=== PATIENT | male | born 1975 | race Caucasian/White ===

== ENCOUNTER 2023-04-20 21:03 | Emergency (ER) | payer OTHER, SELFPAY ==
[2023-04-20 21:17] VITALS: BP 172/97; PULSE 45; RESP 16; TEMP 36.5; O2SAT 97; BMI 31.5
--- NOTE | 2023-04-20 21:38 | DI.US.S_ITS ---
PROCEDURE: US ABDOMEN LIMITED INDICATIONS: RUQ PAIN TECHNIQUE: Real-time focused scanning was performed of the abdomen, with image documentation. COMPARISON: None. FINDINGS: The liver is mildly enlarged. There is increased parenchymal echogenicity compatible with fatty infiltration. The gallbladder is distended and demonstrates multiple gallstones including an impacted stone in the gallbladder neck measuring up to 1.2 cm. No gallbladder wall thickening or pericholecystic fluid. Patient was reportedly tender on examination. No intra or extrahepatic biliary ductal dilatation, with the distal common bile duct not well seen. Pancreas was not well seen. IMPRESSION: 1. Cholelithiasis with distention of the gallbladder and an impacted stone in the gallbladder neck. Although there is no gallbladder wall thickening or pericholecystic fluid, developing cholecystitis cannot be excluded. Dictated by: Rony Caldera M.D. on 04/20/2023 at 23:20 Approved by: Rony Caldera M.D. on 04/20/2023 at 23:22
[2023-04-20] MEDS: ONDANSETRON 4 MG/2 ML INJ IV (21:43)
[2023-04-20] MEDS: KETOROLAC 30 MG/ML VIAL 15 MG IV (21:52)
[2023-04-20 21:55] LABS: Add Manual Diff / Slide Review NO; Basophils Absolute Auto 200 /uL (0-100); Basophils Percent Auto 1.9 % (0-2); Eosinophils Absolute Auto 100 /uL (0-450); Eosinophils Percent Auto 0.7 % (2-4); Hematocrit 40.9 % (41-53); Hemoglobin 14.1 g/dL (13.5-17.5); Lymphocytes Absolute Auto 1400 /uL (1100-4500); Mean Corpuscular HGB Conc 34.5 % (30-36); Mean Corpuscular Hemoglobin 31.5 PG (26-34); Mean Corpuscular Volume 91.3 fL (80-100); Monocytes Absolute Auto 500 /uL (0-900); Monocytes Percent Auto 4.7 % (3-14); Neutrophils Absolute Auto 7500 /uL (1500-7000); Neutrophils Percent Auto 77.7 % (50-75); Platelet Count 247 X10^3/uL (150-400); Red Blood Cell Count 4.48 X10^6/uL (4.5-5.9); Red Cell Distribution Width 12.8 % (11.6-14.8); White Blood Cell Count 9.6 X10^3/uL (4.5-11.0)
[2023-04-20 21:59] LABS: Alanine Aminotransferase 165 IU/L (<50); Albumin 4.6 g/dL (3.5-5.0); Albumin Globulin Ratio 1.2 (1.0-2.8); Alkaline Phosphatase 55 U/L (38-126); Aspartate Aminotransferase 77 IU/L (17-59); BUN Creatinine Ratio 11.6 (6-22); Bilirubin Total 0.5 mg/dL (0.2-1.3); Blood Urea Nitrogen 14 mg/dL (9-20); Calcium 10.2 mg/dL (8.4-10.2); Carbon Dioxide 28 mmol/L (22-32); Chloride 99 mmol/L (98-107); Creatine Kinase 244 U/L (55-170); Estimated Glomerular Filt Rate > 60 mL/min (>60); Globulin 3.9 g/dL (1.7-4.1); Glucose 139 mg/dL (70-100); HEMOLYSIS 16 (0-50); Lipase 62 U/L (23-300); Potassium 3.9 mmol/L (3.4-5.1); Sodium 135 mmol/L (137-145); Total Protein 8.5 g/dL (6.3-8.2)
[2023-04-20 22:11] LABS: Troponin I 0.013 ng/mL (0.01-0.034)
[2023-04-20 22:55] VITALS: BP 143/76
[2023-04-20 22:56] VITALS: PULSE 80; O2SAT 97
--- NOTE | 2023-04-20 23:03 | ED_ITS ---
HPI - Abdominal Pain General Chief Complaint: Abdominal Pain Stated Complaint: upper abd pain Time Seen by Provider: 04/20/23 22:27 Source: patient and family Mode of arrival: Ambulatory History of Present Illness HPI narrative: Patient is a healthy 47-year-old male presents today with epigastric pain. Reports he was doing well earlier in the day had pulled pork, corn, and a beer for dinner started having burning sensation his epigastric region severe pain. Took [id number] [place] no relief. Mild nausea no vomiting. They are currently visiting from [facility]. He denies any chest pain shortness of breath or prior episodes. He is not had fever or chills. Related Data Previous Rx's Medication Instructions Recorded hydrocodone 5 mg-acetaminophen 325 1 tab PO Q6H PRN pain #10 tabs 04/20/23 mg tablet ondansetron 4 mg disintegrating 4 mg PO Q8H PRN nausea and 04/20/23 tablet vomiting #10 tabs Allergies Allergy/AdvReac Type Severity Reaction Status Date / Time No Known Drug Allergies Allergy Verified 04/20/23 21:17 Review of Systems Review of Systems ROS Unobtainable: All systems reviewed & are unremarkable except as noted in HPI and below Patient History Social History Smoking Status: Never smoker Smoking Status: Never smoker alcohol intake frequency: 0-2 drinks per day Substance Use Type: does not use Exam Initial Vital Signs Initial Vital Signs: Vital Signs Temperature 97.7 F 04/20/23 21:17 Pulse Rate 45 L 04/20/23 21:17 Respiratory Rate 16 04/20/23 21:17 Blood Pressure 172/97 H 04/20/23 21:17 Pulse Oximetry 97 04/20/23 21:17 Oxygen Delivery Method Room Air 04/20/23 21:17 GENERAL: Alert well-appearing 47-year-old male and in no acute distress. (seen after Toradol and Zofran) HEENT: Head atraumatic,EOMI, pupils reactive, face symmetric, moist mucous membranes CARDIOVASCULAR: Regular rate and rhythm without murmurs, rubs or gallops. RESPIRATORY: Breath sounds equal bilaterally, no wheezes rales or rhonchi. ABDOMEN: Soft, right upper quadrant pain positive Reddy sign no guarding no rebound mild epigastric pain EXTREMITIES: Normal range of motion, no clubbing or edema. Neurovascularly intact NEUROLOGICAL: Alert and oriented x4.Normal gait and speech. SKIN: Warm, dry, no laceration, no petechiae, no rashes or lesions. Course Orders Ordered: ED Orders 04/20/23 21:22 EKG-12 Lead Stat 04/20/23 21:35 Complete Blood Count AUTO DIFF Stat Comprehensive Metabolic Panel Stat Lipase Stat Troponin & CK Cardiac Panel Stat 04/20/23 21:38 US abdomen limited Stat Discontinued Medications Hydrocodone Bitart/Acetaminophen (Hydrocodone/Acet 5/325 Prepack) 1 bottle MISC SEEINSTR ONE Stop: 04/20/23 23:59 Last Admin: 04/21/23 00:29 Dose: 1 bottle Documented By: SKYLAR Al Hydrox/Mg Hydrox/Simethicone 20 ml/ Lidocaine HCl 15 ml 0 ml PO NOW ONE Stop: 04/20/23 21:26 Last Admin: 04/20/23 22:04 Dose: Not Given Documented By: MARKY Ketorolac Tromethamine (Ketorolac 30 Mg/Ml Vial) 15 mg IV NOW ONE Stop: 04/20/23 21:48 Last Admin: 04/20/23 21:52 Dose: 15 mg Documented By: KIMBER Ondansetron HCl (Ondansetron 4 Mg Odt) 4 mg PO NOW PRN PRN Reason: Nausea And Vomiting Ondansetron HCl (Ondansetron 4 Mg/2 Ml Inj) 4 mg IV NOW PRN PRN Reason: Nausea And Vomiting Last Admin: 04/20/23 21:43 Dose: 4 mg Documented By: ANDRY Ondansetron HCl (Ondansetron 4 Mg Odt Prepack) 1 bottle [facility] Stop: 04/20/23 23:59 Last Admin: 04/21/23 00:29 Dose: 1 bottle Documented By: SKYLAR Pantoprazole Sodium (Pantoprazole 40 Mg Vial) 40 mg IV NOW ONE Stop: 04/20/23 23:11 Last Admin: 04/20/23 23:20 Dose: 40 mg Documented By: KEE Vital Signs Vital signs: Vital Signs - 8 hr 04/20/23 21:17 04/20/23 22:55 04/20/23 22:56 Temperature 97.7 F Pulse Rate 45 L 80 Respiratory Rate 16 Blood Pressure 172/97 H 143/76 H Pulse Oximetry 97 97 Oxygen Delivery Method Room Air Room Air 04/20/23 23:20 04/20/23 23:20 04/21/23 00:30 Temperature 97.9 F Pulse Rate 77 70 Respiratory Rate 16 Blood Pressure 141/74 H 135/76 Pulse Oximetry 96 96 Oxygen Delivery Method Room Air Room Air MDM - Abdominal Pain Lab Data 04/20/23 21:35 04/20/23 21:35 Labs: Lab Results 04/20/23 04/20/23 04/20/23 Range/Units 21:35 21:35 21:35 WBC 9.6 (4.5-11.0) X10^3/uL RBC 4.48 L (4.5-5.9) X10^6/uL Hgb 14.1 (13.5-17.5) g/dL Hct 40.9 L (41-53) % MCV 91.3 (80-100) fL MCH 31.5 (26-34) PG MCHC 34.5 (30-36) % RDW 12.8 (11.6-14.8) % Plt Count 247 (150-400) X10^3/uL Neut % (Auto) 77.7 H (50-75) % Lymph % (Auto) 15.0 L (25-40) % [place] % (Auto) 4.7 (3-14) % Eos % (Auto) 0.7 L (2-4) % Baso % (Auto) 1.9 (0-2) % Neut # (Auto) 7500 H (6461-7212) /uL Lymph # (Auto) 1400 (7959-2305) /uL [place] # (Auto) 500 (0-900) /uL Eos # (Auto) 100 (0-450) /uL Baso # (Auto) 200 H (0-100) /uL Sodium 135 L (137-145) mmol/L Potassium 3.9 (3.4-5.1) mmol/L Chloride 99 (98-107) mmol/L Carbon Dioxide 28 (22-32) mmol/L BUN 14 (9-20) mg/dL Creatinine 1.21 (0.66-1.25) mg/dL Estimated GFR > 60 (>60) mL/min BUN/Creatinine Ratio 11.6 (6-22) Glucose 139 H (70-100) mg/dL Calcium 10.2 (8.4-10.2) mg/dL Total Bilirubin 0.5 (0.2-1.3) mg/dL AST 77 H (17-59) IU/L ALT 165 H (<50) IU/L Alkaline Phosphatase 55 (38-126) U/L Total Creatine Kinase 244 H (55-170) U/L Troponin I 0.013 (0.01-0.034) ng/mL Total Protein 8.5 H (6.3-8.2) g/dL Albumin 4.6 (3.5-5.0) g/dL Globulin 3.9 (1.7-4.1) g/dL Albumin/Globulin Ratio 1.2 (1.0-2.8) Lipase 62 (23-300) U/L Point of care testing: Urine Dip Bedside Urine Glucose Negative Bedside Urine Bilirubin - Negative Bedside Urine Ketone - Negative Urine Specific [place] 1.025 Bedside Urine Occult Blood - Negative Bedside Urine pH 6.0 Bedside Urine Protein - Negative Bedside Urine Urobilinogen - Negative Bedside Urine Nitrite - Negative Bedside Urine Leukocytes - Negative Esterase Imaging Data US - abdomen: Radiologist's Impression: PROCEDURE: US ABDOMEN LIMITED ? INDICATIONS:? RUQ PAIN ? TECHNIQUE:? Real-time focused scanning was performed of the abdomen, with image documentation.? ? COMPARISON:? None. ? FINDINGS:? ? The liver is mildly enlarged.? There is increased parenchymal echogenicity compatible with fatty infiltration. ? The gallbladder is distended and demonstrates multiple gallstones including an impacted stone in the gallbladder neck measuring up to 1.2 cm.? No gallbladder wall thickening or pericholecystic fluid.? Patient was reportedly tender on examination. ? No intra or extrahepatic biliary ductal dilatation, with the distal common bile duct not well seen. ? Pancreas was not well seen. ? ? IMPRESSION:? ? 1. Cholelithiasis with distention of the gallbladder and an impacted stone in the gallbladder neck.? Although there is no gallbladder wall thickening or pericholecystic fluid, developing cholecystitis cannot be excluded. ? ? Dictated by: Rony Caldera M.D. on 04/20/2023 at 23:20 ? ECG Data Interpretation: Normal sinus rhythm rate 47 VA interval 170 QRS [address] changes normal intervals no priors to compare. [facility] Narrative Medical decision making narrative: Patient 47-year-old male presents today with sudden onset epigastric pain and right upper quadrant pain. He is found to have an impacted stone in the neck. He has no evidence of cholecystitis at this time no leukocytosis elevated bilirubin or liver enzymes. We discussed how this will need to be surgically removed. This time not emergent. They are from out of town encouraged him to follow-up with general surgery. Pain is very well controlled with Toradol and Zofran. Protonix. Discussed low-fat diet discussed need for urgent but not emergent for elective surgery. Both and patient understand and will return as needed. Discharge Plan Departure Patient Disposition: Home Clinical Impression: Gallstones Instructions: DI for Gallstones Activity Restrictions/Additional Instructions: *You have been diagnosed with gallstone *What to do: At this time need for admission however you do need to contact surgery and have your gallbladder removed. Please follow gallbladder diet. *Continue to take medications as directed--> [facility] Motrin 600 mg every 6 hours if needed for [id number] pain [place] 1 tablet every 6 hours if needed for severe pain Zofran 4 mg every 8 hours if needed for nausea or vomiting *Follow up with your primary care provider in 2-3 days or call [phone] Please call general surgery tomorrow to schedule appointment *Return to ER if you should have increasing pain persistent vomiting fever or any new, worsening or concerning symptoms CONTROLLED SUBSTANCE DISCHARGE (Narcotoic/benzodiazepine/Flexeril/Phenergan) 1. You have been prescribed narcotic medications, it does have acetaminophen/Tylenol/paracetamol in it, DO NOT TAKE MORE THAN 4,00mg in 24 hours of Tylenol. TRAMADOL DOES NOT CONTAIN TYLENOL 2. Please understand that we cannot provide further refills of narcotics, benzodiazepines or controlled substances through the ED and her pain management will need to be through your provider. 3. While on these medications you cannot drive or operate heavy machinery. 4. You cannot sign legal documents or perform any duties such as this. 5. As long as you're taking opiate pain medications he should also be taking a stool softener such as Colace, Dulcolax, MiraLAX or prune juice, to help avoid constipation. Prescriptions: New hydrocodone-acetaminophen 5-325 mg tablet 1 tab PO Q6H PRN (Reason: pain) Qty: 10 0RF ondansetron 4 mg tablet,disintegrating 4 mg PO Q8H PRN (Reason: nausea and vomiting) Qty: 10 0RF Referrals: [facility] [Provider Group] Stand Alone Forms: Patient Portal/API
[2023-04-20 23:20] VITALS: BP 141/74; PULSE 77; O2SAT 96
[2023-04-20] MEDS: PANTOPRAZOLE 40 MG VIAL IV (23:20)
[2023-04-21] MEDS: HYDROCODONE/ACET 5/325 PREPACK 1 BOTTLE MISC (00:29)
[2023-04-21] MEDS: ONDANSETRON 4 MG ODT PREPACK 1 BOTTLE MISC (00:29)
[2023-04-21 00:30] VITALS: BP 135/76; PULSE 70; RESP 16; TEMP 36.6; O2SAT 96
== END 2023-04-21 00:31 | disposition home or self-care (01) ==
PROVIDERS: Emergency Provider Emergency Medicine
DX: K80.20 Calculus of gallbladder without cholecystitis without obstruction (principal)
CPT/HCPCS: 36415; 76705; 80053; 81003; 82550; 83690; 84484; 85025; 93005; 93010; 99284; C9113; J1885; J2405